=== PATIENT | female | born 1955 | race Caucasian/White ===

== ENCOUNTER 2019-07-28 01:04 | Emergency (ER) | payer OTHER, SELFPAY ==
--- NOTE | ~2019-07-28 | XR_ITS ---
EXAMINATION: XR chest 2V DATE: 07/28/2019 01:37 INDICATION: Cough. TECHNIQUE: Frontal and lateral views of the chest were obtained. COMPARISON: Chest 2 views 06/01/2017, chest CT 06/08/2017 FINDINGS: The chest demonstrates clear lungs without pneumonia, pleural effusion, or pneumothorax. Th e heart size is normal. IMPRESSION: 1. No acute cardiopulmonary disease. Reviewed, dictated and finalized at location [facility]
[2019-07-28 01:10] VITALS: BP 122/65; PULSE 80; RESP 18; TEMP 36.7; O2SAT 97
--- NOTE | 2019-07-28 01:20 | ED.URI ---
HPI - URI/Sore Throat General Chief Complaint: Upper Respiratory Infection Stated Complaint: fever,cough Time Seen by Provider: 07/28/19 01:11 Source: patient and RN notes reviewed Mode of arrival: ambulatory Limitations: no limitations History of Present Illness HPI Narrative: Pt is a 63 y/o female with a Hx of COPD, who presents to the ED with c/o flu-like symptoms starting 4 days ago. She notes that she has been near a sick coworker, and states that he recently tested positive for Influenza A. Pt notes that she developed a cough and fever 4 days ago. She states that her fever has been waxing and waning ever since. Pt notes that her cough has continued to worsen over the past several days. She also reports pressure in her bilateral ears, but denies any other symptoms. Pt states that she currently smokes 1.5 PPD. MD elicited complaint: fever and cough Pertinent past history: COPD Onset (ago): day(s) (4) Context: sick contacts Associated symptoms: other (pressure in bilateral ears) Related Data Allergies Allergy/AdvReac Type Severity Reaction Status Date / Time codeine Allergy Unknown Verified 04/28/17 08:00 Review of Systems Review of Systems: All systems reviewed & are unremarkable except as noted in HPI and below Constitutional: Constitutional: Reports fever(s) ENT: Reports other (pressure in bilateral ears) Respiratory: Respiratory: Reports cough PMFSH Past Medical History Medical History Anxiety Bronchitis COPD (chronic obstructive pulmonary disease) Depression GERD (gastroesophageal reflux disease) Pancreatitis Restless leg syndrome Sleep apnea Surgical History Surgical History History of mandibular surgery Hx of appendectomy Hx of tonsillectomy Family History Family History (Updated 04/28/17 @ 08:09 by DOCTOR UNKNOWN) Sibling Carcinoma of colon Father Family history of diabetes mellitus in first degree relative Family history of heart disease in male family member before age 55 Family history of type 2 diabetes mellitus Diabetes mellitus Family history of cardiovascular disease Other Cerebrovascular accident Family history of malignant neoplasm Hypertension Social History Social History Smoking packs per day: 1.5 Smoking cigarettes per day: 30.0 Smoking status: Heavy tobacco smoker Exam Narrative: Exam Narrative: APPEARANCE: No acute distress, nontoxic, resting in bed EYES: EOMI HEENT: Normocephalic, atraumatic, TMs clear bilaterally, bilateral turbinates boggy, mild erythema of the bilateral tonsils and posterior pharynx no exudate, uvula midline RESPIRATORY: No respiratory distress wheezing upper lung francis with coughing, no rhonchi or rales CARDIOVASCULAR: Regular rate and rhythm without murmurs rubs or gallops. ABDOMINAL: Soft, nontender, nondistended, no rebound or guarding MUSCULOSKELETAl: Moves all extremities. No clubbing, cyanosis or edema. NEURO: Awake and alert. Following commands, speech normal, no focal deficits SKIN:: Warm, dry. No rashes lesions or abrasions PSYCHIATRIC: Normal affect/mood, Course Course Emergency Course: Following breathing treatment lungs clear all station bilaterally Discussed with patient results of workup and diagnosis. Discussed need for follow-up with primary care, proper use of medication, and reasons to return to the emergency department. Patient understands and agrees to current treatment plan. Patient states she has albuterol inhaler at home Vital Signs Vital signs: Vital Signs Temperature 98.1 F 07/28/19 01:10 Pulse Rate 80 07/28/19 01:10 Respiratory Rate 18 07/28/19 01:10 Blood Pressure 122/65 07/28/19 01:10 Pulse Oximetry 97 07/28/19 01:10 Temperature 98.1 F 07/28/19 01:10 Pulse Rate 86 07/28/19 02:48 Respiratory Rate 18 07/28/19 02:48 Blood Pressu
--- NOTE | 2019-07-28 01:32 | PC.NURSE ---
Patient taken to radiology.
[2019-07-28] MEDS: predniSONE 20 MG TABLET 60 MG PO (01:46)
[2019-07-28 02:07] VITALS: O2SAT 99
[2019-07-28] MEDS: IPRATROPIUM BR 0.02% INH SOLN 0.5 MG/2.5 ML VIAL INHALATION (02:38)
[2019-07-28 02:39] VITALS: PULSE 82; RESP 20
[2019-07-28] MEDS: ALBUTEROL SULFATE NEB 2.5 MG/0.5 ML INH 5 MG INHALATION (02:39)
[2019-07-28 02:48] VITALS: PULSE 86; RESP 18
[2019-07-28 03:30] VITALS: BP 125/82; PULSE 85; RESP 20; O2SAT 98
== END 2019-07-28 03:32 | disposition home or self-care (01) ==
PROVIDERS: Emergency Provider Emergency Medicine
DX: J10.1 Influenza due to other identified influenza virus with other respiratory manifestations (principal); J44.9 Chronic obstructive pulmonary disease, unspecified; F17.210 Nicotine dependence, cigarettes, uncomplicated
CPT/HCPCS: 71046; 87804; 94640; 99283; J7512

== ENCOUNTER 2023-07-21 05:51 | Day surgery (SDC) | payer MEDICARE, SELFPAY ==
[2023-07-14 13:52] VITALS: BMI 29.8
--- NOTE | 2023-07-20 09:19 | WPDANESEPPF ---
Anes - Initial Pre Proc Eval Procedure: Operation Date: 07/21/23 07:30 Proposed Procedures p Hammer Toe Repair and Primary Plantar Plate Repair Second Digit Right Foot - Chapin Tinajero JR, MD s Lesley Shortening Second Metatarsal Osteotomy Right Foot - Chapin Tinajero JR, MD Date/Time: 07/20/23 09:19 Surgeon: Chapin Tinajero JR, MD Pre Op Diagnosis: Hammer Toe 2nd Digit Right Foot Patient Data Age: 67 Gender: F Height: 1.57 m Weight: 74 kg Allergies Allergy/AdvReac Type Severity Reaction Status Date / Time No Known Allergies Allergy Verified 07/21/23 06:34 Home Medications Medication Instructions Recorded Confirmed Type ropinirole 0.5 mg tablet 0.5 mg PO DIRECTED #120 tabs 04/26/23 07/21/23 Rx Patient hx anesthesia problems: none Family hx anesthesia problems: none Results Review: All pre-operative results and documents have been reviewed as part of the pre-operative evaluation. [facility] Past Medical History Medical History (Updated 08/17/22 @ 07:46 by Wade Stevens APRN) Alcoholism in recovery Bronchitis COPD (chronic obstructive pulmonary disease) Restless leg syndrome Sleep apnea Surgical History Surgical History History of mandibular surgery Hx of appendectomy Hx of tonsillectomy Family History Family History Sibling Carcinoma of colon Father Family history of diabetes mellitus in first degree relative Family history of heart disease in male family member before age 55 Family history of type 2 diabetes mellitus Diabetes mellitus Family history of cardiovascular disease Other Cerebrovascular accident Family history of malignant neoplasm Hypertension Social History Social History (Updated 08/17/22 @ 07:44 by Wade Stevens APRN) Smoking packs per day: 1.5 Smoking cigarettes per day: 30.0 Years smoked: 40 Smoking pack-years: 60.00 Smoking status: Former smoker Tobacco type: cigarettes Second hand tobacco smoke exposure: No Alcohol intake: former Alcohol use details: Recovering alcoholic; sober since Mar 10, 2016. ANY treatment that providers may feel are required which would include mood altering or pain treatment MUST be avoided per patient. Substance use type: does not use Living arrangements: with family Spiritual care concerns: No Anes - Eval Final PreProcedure Day of Procedure 07/20/23 09:19 Patient weight: overweight Heart: regular rate and rhythm Lungs: clear to auscultation Airway: Mallampati scale class II Neurological: alert and oriented Last oral intake: >/= 8 hours ASA classification: III Emergent: no Anesthetic plan: proceed Anesthesia type and monitoring: general LMA and standard monitoring Results Review: All pre-operative results and documents have been reviewed as part of the pre-operative evaluation. Informed Consent: The patient's anesthetic plan and its attendant risks and benefits were discussed with the patient/family/POA. Questions were solicited and answers provided to the satisfaction of the patient/family/POA.
[2023-07-21] VITALS (10 sets, daily range): BP systolic 128–150; BP diastolic 62–100; PULSE 62–90; RESP 12–16; TEMP 36.1–36.6; O2SAT 96–100
--- NOTE | ~2023-07-21 | XR_ITS ---
EXAMINATION: XR surgery orthopedic DATE: 07/21/2023 08:58 INDICATION: Right foot hammertoe correction TECHNIQUE: Single dorsal plantar fluoroscopic image of the right forefoot was obtained during procedu re performed by Dr. Tinajero. Radiologist was not present for the imaging or procedure. The amount of fluoroscopy time used during this procedure was 0.1 minutes. COMPARISON: None. FINDINGS: Shortening osteotomy with screw fixation at the head and neck of the right second metatarsal. Osteoto my at the head of the second proximal phalanx with internally fixed second proximal interphalangeal a rthrodesis. There is likely postoperative lucent gas in the widened second metatarsophalangeal joint space. Small lucent contracted versus suture anchor site at the base of the second proximal phalanx. No fractures identified. Contours of the distal first metatarsal suggest changes of chronic bunionect shilpi and possible realignment osteotomy. 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 IMPRESSION: 1. Fluoroscopy utilized during hammertoe correction at the right second toe as detailed above. See pr ocedure note for further detail. Reviewed, dictated and finalized at location [facility]. [facility] FATH[facility] IMPRESSION: 1. Fluoroscopy utilized during hammertoe correction at the right second toe as detailed above. See procedure note for further detail.
[2023-07-21] MEDS: LACTATED RINGERS 1,000 ML 30 ML IV CONT ×2 (07:00→08:43)
--- NOTE | 2023-07-21 07:19 | WPDHPUPDATE1 ---
History and Physical Update Update Date/Time: 07/21/23 07:19 History and Physical has been reviewed, including an updated exam of the patient. There are NO changes in the patient's condition. Risks, benefits, and alternatives have been discussed and questions answered. Patient agrees to proceed with procedure.
--- NOTE | 2023-07-21 07:22 | SUR.PREOP ---
during pre-op, Pt states broke a glass and has small cuts on both hands. Dr. Tinajero notified who looked at Pt's hands and states okay to move forward with surgery. No further orders at this time.
[2023-07-21] MEDS: ceFAZolin SODIUM 2 GM/20 ML SW SYRINGE IV PUSH (07:27)
[2023-07-21] MEDS: LIDOCAINE HCL 2% PF INJ 5 ML VIAL 10 ML INFILTRATE (07:40)
--- NOTE | 2023-07-21 08:50 | W.PM.PROC2 ---
Procedure Note - Detailed Date of Procedure 07/21/23 Pre-op Diagnosis 1. Hammer Toe 2nd Digit Right Foot 2. Metatarsalgia right foot 3. Pre dislocation syndrome second digit right foot Post-op Diagnosis Same Procedure Performed 1. Hammertoe repair 2nd digit right foot 2. Primary plantar plate repair second digit right foot 3. Lesley shortening second metatarsal osteotomy right foot Surgeon Chapin Tinajero JR, ANALISA Anesthesia General and Local Indications Painful right forefoot with dorsal medially deviated hammertoe second digit Description of Procedure PROCEDURE IN DETAIL: Under mild sedation, the patient was brought into the operating room, placed on the operating table in supine position. A pneumatic ankle tourniquet was placed about the patient's ipsilateral ankle. Following general LMA, a local anesthetic block was obtained about the foot and ankle utilizing 10 cc of 2% Lidocaine plain and 0.5% Marcaine plain. The foot was then scrubbed, prepped, and draped in the usual aseptic manner. An Esmarch bandage was then used to exsanguinate the patient's foot and the pneumatic ankle tourniquet was then inflated. Surgery began in the following manner: Attention was directed to the second digit of the foot where a 5 cm incision was made from starting just distal to the interphalangeal joint and extending to the 2nd metatarsal shaft. A transverse tenotomy was created dorsal to the proximal interphalangeal joint, next the head of the proximal phalanx was resected with an oscillating saw blade, the middle phalanx cartilage was resected with a curette. The dissection was continued to the dorsal aspect of the 2nd metatarsal head of the foot through the same incision just medial to the extensor tendon to the 2nd digit. The incision was continued deep down through the subcutaneous tissues using sharp and blunt dissection. All bleeders were cauterized as necessary. A full-length periosteal incision was made overlying the 2nd metatarsal head distally, a 15 blade was used to expose the entire 2nd metatarsal head and a Mc Glammary was used to free the plantar plate from the plantar surface of the 2nd metatarsal. Next, a sagittal bone saw was used to make an osteotomy starting along the dorsal aspect of the articular surface to the head of the 2nd metatarsal in a parallel fashion to the shaft of the 2nd metatarsal. After this osteotomy was completed, the head of the 2nd metatarsal was pushed proximally and held in place with a k wire. The lateral collateral ligaments were freed from the medial and lateral aspect of the head of the metatarsal. The plantar plate was visualized after a joint distractor was used to expose the 2nd metatarsal phalangeal joint plantarly. Utilizing the Arthrex Scorpion system the fibertape suture was used to make a horizontal mattress stitch to grasp the plantar plate and advance it during the repair. Next, two drill holes were made with standard technique for the Arthrex scorpion system starting dorsally and medial and lateral of the base of the proximal phalanx to the plantar aspect, a lasso system was used to pull the fibertape suture dorsally in a crossed fashion. Next, I implanted the Arthrex cannulated Dynanite size 12 mm hammertoe implant in a cannulated fashion using standard technique. Fluoroscopy was used to make sure that the digit and implant was appropriately positioned. Next, two Arthrex snapoff screws were driven from dorsal to plantar to fixate the Lesley osteotomy site under fluoroscopy with excellent compression noted, a 13mm and a 11mm screw length was used. The second metatarsal length has improved significantly in regards to the parabola with the adjacent metatarsals. The 2nd digit was properly reduced no longer dislocated. The second digit was plantarflexed and a surgeon handknot was used to tie the plantar plate as it was advanced and tied atop the base of the proximal phalanx. The wound site was then flus
--- NOTE | 2023-07-21 09:38 | WPDANESPN ---
Anes - Prog Note Post-Op Date/Time: 07/21/23 09:38 Cardiovascular status: normal Respiratory status: normal Airway patency: baseline Mental status: baseline Post-Op hydration status: normal Vital Signs: Last Vital Signs Temp 36.1 C L 07/21/23 08:43 Pulse 90 07/21/23 09:35 Resp 15 07/21/23 09:35 BP 147/68 H 07/21/23 09:35 Pulse Ox 99 07/21/23 09:35 O2 Del Method Room Air 07/21/23 09:35 Pain Score (VAS): 2 I/O: Intake & Output 07/20/23 07/21/23 07/21/23 23:59 07:59 15:59 Intake Total 1400 Balance 1400 Post-procedural complaints: none Patient Feedback: Patient satisfied with anesthetic care. Other Findings: Patient vital signs back to baseline. Patient denies nausea and vomiting. Patient's pain under control. Patient OK for discharge.
== END 2023-07-21 10:22 | disposition home or self-care (01) ==
PROVIDERS: PCP Family Medicine; Visit Provider Podiatrist Foot & Ankle Surgery
PROC: (CPT 28313; principal; 2023-07-21 07:30)
PROC: (CPT 28299; 2023-07-21 07:30)
DX: M20.41 Other hammer toe(s) (acquired), right foot (principal); M77.41 Metatarsalgia, right foot; M89.8X7 Other specified disorders of bone, ankle and foot
CPT/HCPCS: 28313; 28285; 28308; 99199